=== PATIENT | female | born 1970 | race Two or more races ===

== ENCOUNTER 2016-07-14 16:06 | Emergency (ER) | payer BC ==
[2016-07-14 16:16] VITALS: RESP 16
[2016-07-14 17:18] LABS: % IMMATURE GRANULYOCYTES 0.3 % (0.0-1.1); ABSOLUTE IMMATURE GRANULOCYTES 0.03 10^3/uL (0.00-0.10); ADD DIFF? NO; ADD MORPH? NO; ADD SCAN? NO; ATYPICAL LYMPHOCYTE FLAG 10 (0-99); FRAGMENT RBC FLAG 0 (0-99); HEMOGLOBIN 14.6 g/dL (12.6-16.3); LEFT SHIFT FLG 10 (0-99); LIPEMIA HEMOLYSIS FLAG 80 (0-99); MEAN CELL HEMOGLOBIN CONCENTR. 33.2 g/dL (32.4-36.7); MEAN CELL VOLUME 87.5 fL (81.5-99.8); MEAN PLATELET VOLUME 9.6 fL (8.7-11.7); PLATELET CLUMPS FLAG 0 (0-99); PLATELET COUNT 336 10^3/uL (150-400); RED BLOOD CELL COUNT 5.03 10^6/uL (4.18-5.33); RED CELL DISTRIBUTION WIDTH 12.3 % (11.5-15.2)
[2016-07-14 17:24] LABS: ALANINE AMINOTRANSFERASE 30 IU/L (9-52); ALKALINE PHOSPHATASE 97 IU/L (38-126); ANION GAP 9 mEq/L (8-16); ASPARTATE AMINOTRANSFERASE 29 IU/L (14-46); BILIRUBIN,TOTAL 0.5 mg/dL (0.1-1.4); BILIRUBIN-CONJUGATED 0.3 mg/dL (0.0-0.5); BILIRUBIN-UNCONJUGATED 0.2 mg/dL (0.0-1.1); CALCIUM 9.2 mg/dL (8.5-10.4); CARBON DIOXIDE 27 mEq/l (22-31); CHLORIDE 106 mEq/L (97-110); CREATININE 0.8 mg/dL (0.6-1.0); GLOMERULAR FILTRATION RATE > 60; GLUCOSE 95 mg/dL (70-100); SODIUM 142 mEq/L (134-144); TOTAL PROTEIN 7.5 g/dL (6.3-8.2)
--- NOTE | 2016-07-14 17:28 | EDPHY ---
H & P Stated Complaint: bloating and abd pain Time Seen by Provider: 07/14/16 17:01 HPI/ROS: CHIEF COMPLAINT: Generalized abdominal pain HISTORY OF PRESENT ILLNESS: The patient presents to the ED for a 2 day history of generalized abdominal pain, bloating and nausea. The patient reports he has had milder symptoms in the past without workup. Past surgical history significant only for tubal ligation. The patient denies dysuria. She has no complaints of back pain. She denies history of melena. She does report dyspepsia. Her symptoms are mild to moderate in nature. Her pain is poorly localized. REVIEW OF SYSTEMS: A comprehensive 10 point review of systems is otherwise negative aside from elements mentioned in the history of present illness. Source: Patient Exam Limitations: No limitations - Personal History LMP (Females 10-55): Now Current Tetanus/Diphtheria Vaccine: Unsure - Medical/Surgical History Hx Asthma: No Hx Chronic Respiratory Disease: No Hx Diabetes: No Hx Cardiac Disease: No Hx Renal Disease: No Hx Cirrhosis: No Hx Alcoholism: No Hx HIV/AIDS: No Hx Splenectomy or Spleen Trauma: No Other PMH: migraines - Family History Significant Family History: No pertinent family hx - Social History Smoking Status: Never smoked Alcohol Use: None - Physical Exam Exam: General Appearance: Alert, no distress Eyes: Pupils equal and round no pallor or injection ENT, Mouth: Mucous membranes moist Respiratory: There are no retractions, lungs are clear to auscultation Cardiovascular: Regular rate and rhythm Gastrointestinal: Minimal diffuse abdominal tenderness, no peritoneal signs Neurological: A&O, normal motor function, normal sensory exam, normal cranial nerves Skin: Warm and dry, no rashes Musculoskeletal: Neck is supple nontender Extremities: symmetrical, full range of motion Constitutional: Initial Vital Signs Temperature (C) 37 C 07/14/16 16:13 Heart Rate 76 07/14/16 16:13 Respiratory Rate 16 07/14/16 16:13 Blood Pressure 121/77 H 07/14/16 16:13 O2 Sat (%) 98 07/14/16 16:13 O2 Delivery Mode Room Air Allergies/Adverse Reactions: No Known Allergies Allergy (Unverified 11/22/12 17:19) Home Medications: Medication Instructions Recorded [place] 07/14/16 Cephalexin [Keflex] 500 mg PO TID #15 cap 07/14/16 Ondansetron Odt [Zofran Odt] 4 mg PO Q4PRN PRN #20 tab 07/14/16 Phenazopyridine HCl [Pyridium 200 mg PO TID PRN #10 tab 07/14/16 200mg (RX)] Propranolol HCl 07/14/16 Medical Decision Making - Diagnostics Imaging: CT abdomen pelvis with IV contrast: Normal appearing appendix, no evidence of perforation or obstruction, no evidence of intra-abdominal pathology. Study results reported to me by Dr. Leland Corley. ED Course/Re-evaluation: The patient presents to the ED with a 1 day history of generalized abdominal discomfort. She had minimal tenderness on exam. Her laboratory studies are unremarkable. I could not fully exclude the possibility that appendicitis was explaining her symptoms. A CT scan of the abdomen and pelvis was obtained which demonstrated a normal appearing appendix. The patient is noted to have evidence of a urinary tract infection which could certainly be explaining her symptoms. The patient did receive IV Rocephin in the emergency department. The patient remained hemodynamically stable with a benign abdominal examination. At this point time I do feel that she can safely be discharged home with customary return precautions. She will be treated for Keflex for possible UTI. She is given a prescription for peridium and Zofran. Differential Diagnosis: Differential diagnosis considered includes appendicitis, perforation, obstruction, pancreatitis, cholecystitis, pyelonephritis, gastroenteritis - Data Points Laboratory Results: Laboratory Results 07/14/16 17:00 07/14/16 17:00 07/14/16 07/14/16 17:25 17:00 WBC 10.81 H 10^3/uL (3.80-9.50) RBC 5.03 10^6/uL (4.18-5.33) Hgb 14.6 g/dL (12.6-16.3) Hct 44.0 % (38.0-47.0) MCV 87.5 fL (81.5-99.8) MCH 29.0 pg (27.9-34.1) MCHC 33.2 g/dL (32.4-36.7) RDW 12.3 % (11.5-15.2) Plt Count 336 10^3/uL (150-400) MPV 9.6 fL (8.7-11.7) Neut % (Auto) 65.9 % (39.3-74.2) Lymph % (Auto) 23.7 % (15.0-45.0) Antelope % (Auto) 5.6 % (4.5-13.0) Eos % (Auto) 4.0 % (0.6-7.6) Baso % (Auto) 0.5 % (0.3-1.7) Nucleat RBC Rel Count 0.0 % (0.0-0.2) Absolute Neuts (auto) 7.14 H 10^3/uL (1.70-6.50) Absolute Lymphs (auto) 2.56 10^3/uL (1.00-3.00) Absolute Monos (auto) 0.60 10^3/uL (0.30-0.80) Absolute Eos (auto) 0.43 H 10^3/uL (0.03-0.40) Absolute Basos (auto) 0.05 10^3/uL (0.02-0.10) Absolute Nucleated RBC 0.00 10^3/uL (0-0.01) Immature Gran % 0.3 % (0.0-1.1) Immature Gran # 0.03 10^3/uL (0.00-0.10) Sodium 142 mEq/L (134-144) Potassium 4.0 mEq/L (3.5-5.2) Chloride 106 mEq/L (97-110) Carbon Dioxide 27 mEq/l (22-31) Anion Gap 9 mEq/L (8-16) BUN 14 mg/dL (7-23) Creatinine 0.8 mg/dL (0.6-1.0) Estimated GFR > 60 Glucose 95 mg/dL (70-100) Calcium 9.2 mg/dL (8.5-10.4) Total Bilirubin 0.5 mg/dL (0.1-1.4) Conjugated Bilirubin 0.3 mg/dL (0.0-0.5) Unconjugated Bilirubin 0.2 mg/dL (0.0-1.1) AST 29 IU/L (14-46) ALT 30 IU/L (9-52) Alkaline Phosphatase 97 IU/L (38-126) Total Protein 7.5 g/dL (6.3-8.2) Albumin 4.0 g/dL (3.5-5.0) Lipase 194.0 IU/L (23-300) Beta HCG, Qual NEGATIVE Urine Color YELLOW Urine Appearance HAZY Urine pH 6.0 (5.0-7.5) Ur Specific Curtis 1.013 (1.002-1.030) Urine Protein NEGATIVE (NEGATIVE) Urine Ketones NEGATIVE (NEGATIVE) Urine Blood 3+ H (NEGATIVE) Urine Nitrate NEGATIVE (NEGATIVE) Urine Bilirubin NEGATIVE (NEGATIVE) Urine Urobilinogen NEGATIVE EU (0.2-1.0) Ur Leukocyte Esterase 1+ H (NEGATIVE) Urine RBC 50-182 H /hpf (0-3) Urine WBC 10-15 H /hpf (0-3) Ur Epithelial Cells TRACE /lpf (NONE-1+) Urine Bacteria TRACE H /hpf (NONE SEEN) Ur Culture Indicated? INDICATED H (NI) Urine Glucose NEGATIVE (NEGATIVE) Medications Given: Discontinued Medications Morphine Sulfate (Morphine) 4 mg IVP EDNOW ONE Stop: 07/14/16 17:29 Last Admin: 07/14/16 17:36 Dose: 4 mg Departure - Departure Disposition: Home, Routine, Self-Care Clinical Impression: Acute abdominal pain, Urinary tract infection Condition: Good Instructions: Urinary Tract Infection in Women (ED) Additional Instructions: 1. Take antibiotics as directed for urinary tract infection. 2. Zofran as needed for nausea 3. Tylenol and ibuprofen as needed for pain 4. Please take Pyridium as directed for bladder spasms. 5. Return to the ED for fever, flank pain, vomiting or other concerns. Referrals: Karissa Bhatt MD [Primary Care Provider] - As per Instructions
[2016-07-14] MEDS ORDERED: IOPAMIDOL (ISOVUE-300) 50 ML VIAL IV ONE (17:33)
[2016-07-14 17:52] LABS: COLOR YELLOW; LEUKOCYTE ESTERASE,URINE 1+ (NEGATIVE); NITRITE,URINE NEGATIVE (NEGATIVE)
[2016-07-14 17:57] LABS: BACTERIA TRACE /hpf (NONE SEEN); RBC,URINE 50-182 /hpf (0-3)
--- NOTE | 2016-07-14 18:04 | CT ---
CT Scan of the Abdomen and Pelvis (With Contrast) Clinical Indications: Mid abdominal pain, white blood cell count 10.81, history of tubal ligation bertrand rgery Technique: 97 mL of Isovue-300 were given intravenously by machine power injection. Multidetector he lical CT imaging was performed from the diaphragm to the symphysis pubis. Dose reduction techniques w ere utilized. Findings Abdomen: The lung bases are clear, and there is no pleural fluid. The liver is normal. The biliar y ducts and gallbladder are unremarkable. The pancreas and spleen are normal. The adrenal glands an d kidneys are normal. No adenopathy and no masses are found. No aneurysm of the abdominal aorta. Pelvis: The urinary bladder is unremarkable. No free fluid in the pelvis. No masses are identified . Bilateral tubal ligation clips are present. Bowel loops are normal. There is a normal retrocecal a ppendix. The region of the terminal ileum looks normal. There is no evidence for diverticulosis or di verticulitis. Impression: No source for pain identified. Results discussed with Dr. Ned Landon.
[2016-07-14 18:58] VITALS: BP 131/75; PULSE 68; TEMP 98.4; O2SAT 95
== END 2016-07-14 18:58 | disposition home or self-care (01) ==
DX: N39.0 Urinary tract infection, site not specified (principal); B96.89 Other specified bacterial agents as the cause of diseases classified elsewhere
CPT/HCPCS: 96374; J0696; Q9967

== ENCOUNTER → 2017-02-18 | Outpatient (CLI) | payer BC | LOC: FIMAGING 09:40 | PROVIDERS: ATTEND Family Medicine | DX: Z12.31 Encounter for screening mammogram for malignant neoplasm of breast (principal) | CPT/HCPCS: G0202 ==

== ENCOUNTER → 2018-04-11 | Outpatient (CLI) | payer BC | LOC: FIMAGING 15:34 | PROVIDERS: ATTEND Family Medicine | DX: Z12.31 Encounter for screening mammogram for malignant neoplasm of breast (principal) ==